=== PATIENT | male | born 1965 | race Caucasian/White ===

== ENCOUNTER → 2016-11-13 | Outpatient (CLI) | payer BC ==
[2016-11-13 08:55] LABS: CH 31.3; CHCM 32.2; HCT 46.5 % (39.0-53.0); HDW 2.31; MCH 31.5 pg (25.0-35.0); MCHC 32.2 g/dL (31.0-37.0); MCV 97.6 fL (80.0-100.0); Mean Platelet Volume 7.7; RBC 4.76 m/uL (4.30-5.90); RDW 12.9 % (11.5-15.5); WBC 7.6 k/uL (3.8-10.6)
[2016-11-13 09:00] LABS: Appearance,Urine Clear (Clear); Bilirubin,Urine Negative (Negative); Glucose,Urine (UA) Negative (Negative); Ketones,Urine Negative (Negative); Leukocyte Esterase,Urine Negative (Negative); Nitrite,Urine Negative (Negative); Protein,Urine Negative (Negative); Specific Gravity,Urine 1.015 (1.001-1.035); UA Billing (MACRO vs. MICRO) CHEM; Urobilinogen,Urine <2.0 mg/dL (<2.0)
[2016-11-13 11:26] LABS: ALT 64 U/L (21-72); AST 37 U/L (17-59); Alkaline Phosphatase 97 U/L (38-126); Anion Gap 10 mmol/L; Blood Urea Nitrogen 15 mg/dL (9-20); Calcium 9.2 mg/dL (8.4-10.2); Carbon Dioxide 25 mmol/L (22-30); Chloride 107 mmol/L (98-107); Cholesterol 144 mg/dL (<200); Glucose 104 mg/dL (74-99); HDL Cholesterol 56 mg/dL (40-60); Non-African American GFR(MDRD) >60 (>60 ml/min/1.73 sqM); Potassium 4.5 mmol/L (3.5-5.1); Sodium 142 mmol/L (137-145); Total Bilirubin 0.6 mg/dL (0.2-1.3); Total Protein 6.7 g/dL (6.3-8.2)
[2016-11-13 11:56] LABS: Prostate Specific Antigen 0.36 ng/mL (0.00-4.00)
== END | disposition home or self-care (01) ==
LOC: LABWHC1 08:20
PROVIDERS: ATTEND Family Medicine
DX: Z00.00 Encounter for general adult medical examination without abnormal findings (principal)
CPT/HCPCS: 36415; 80053; 80061; 81003; 84153; 85027

== ENCOUNTER 2020-06-13 07:21 | Day surgery (SDC) | payer BC ==
[2020-06-11 10:30] VITALS: BMI 28.2
[~2020-06-13 07:21] MED LIST: LACTATED RINGERS 1,000 ML IV SCH
[2020-06-13] MEDS ORDERED: LIDOCAINE 1% (10MG/ML) FOR IV START INTRADERMA ONE (07:54)
[2020-06-13 08:00] VITALS: TEMP 97.2
[2020-06-13] MEDS ORDERED: PROPOFOL 10 MG/ML 20 ML VIAL IV ONE (08:24)
--- NOTE | 2020-06-13 08:46 | P.PCN ---
Date of Procedure: 06/13/20 Procedure(s) Performed: BRIEF HISTORY: Patient is a 55-year-old pleasant white male scheduled for an elective colonoscopy as a part of screening for colorectal neoplasia. He has family history of colon cancer diagnosed in his paternal uncle and colon polyps in his father. PROCEDURE PERFORMED: Colonoscopy. PREOPERATIVE DIAGNOSIS: Screening for colon cancer and family history of colon cancer. IV sedation per Anesthesia. PROCEDURE: After informed consent was obtained, the patient, was brought into the endoscopy unit. IV sedation was administered by Anesthesia under continuous monitoring. Digital rectal examination was normal. Initially the Olympus CF-160 flexible video colonoscope was then inserted in the rectum, gradually advanced into the cecum without any difficulty. Careful examination was performed as the scope was gradually being withdrawn. Ileocecal valve and the appendiceal orifice were visualized and appeared normal. Prep was excellent. Mucosa of the cecum, ascending colon, transverse colon, descending colon, sigmoid colon, and rectum appeared normal. Retroflexion was performed in the rectum and no lesions were seen. The patient tolerated the procedure well. IMPRESSION: Normal-appearing colon from rectum to cecum with no evidence of colorectal neoplasia. RECOMMENDATIONS: Findings of this examination were discussed with the patient as well as his family. He was advised to have a repeat screening colonoscopy every 5 years because of the family history of colon cancer.
[2020-06-13 08:57] VITALS: BP 106/66; PULSE 57; RESP 18
== END 2020-06-13 09:19 | disposition home or self-care (01) ==
LOC: ORWHC2ENDO 07:21
PROVIDERS: ATTEND Internal Medicine Gastroenterology
DX: Z12.11 Encounter for screening for malignant neoplasm of colon (principal); Z80.0 Family history of malignant neoplasm of digestive organs; Z83.71 Family history of colonic polyps; K21.9 Gastro-esophageal reflux disease without esophagitis; Z98.890 Other specified postprocedural states
CPT/HCPCS: J2704; G0105; 45378

== ENCOUNTER → 2020-06-20 | Outpatient (CLI) | payer BC ==
--- NOTE | 2020-06-20 17:00 | CT ---
EXAMINATION TYPE: CT sinus wo con DATE OF EXAM: 06/20/2020 COMPARISON: None HISTORY: Chronic sinusitis. CT DLP: 624.5 mGycm Automated exposure control for dose reduction was used. Images obtained from the bottom of the maxilla to the top of the frontal sinuses without contrast. There is mucosal thickening in the frontal ethmoid and maxillary sinuses. Sphenoid sinus shows minima l mucosal thickening on the right side.. Nasal bone is intact. Orbital margins are intact. There is n o retro-orbital mass. There is bilateral patency of the ostiomeatal complex. The nasal turbinates marielena ear intact. I see no focal bone destruction. The maxilla is intact. There is normal aeration of the m astoid sinuses. IMPRESSION: There is pansinusitis. No focal bone destruction.
== END | disposition home or self-care (01) ==
LOC: RADCTMAIN 16:29
PROVIDERS: ATTEND Otolaryngology
DX: J32.4 Chronic pansinusitis (principal)
CPT/HCPCS: 70486

== ENCOUNTER 2022-08-01 18:08 | Emergency (ER) | payer BC ==
[2022-08-01 18:18] VITALS: TEMP 97.4
[2022-08-01] MEDS ORDERED: SODIUM CHLORIDE 0.9% 1,000 ML IV STA (18:36)
--- NOTE | 2022-08-01 19:06 | ED ---
General Adult HPI - General Chief complaint: Syncope Stated complaint: syncope Time Seen by Provider: 08/01/22 18:15 Source: EMS Mode of arrival: EMS Limitations: no limitations - History of Present Illness Initial comments: Patient's 57-year-old man who arrives here after he reportedly passed out. The patient states that he started feeling terrible around 5 PM. The was feeling weak and fatigued, lightheaded, and sweaty. At that time and he was a passenger in a vehicle. He subsequently had syncopal episode. Family reported that he had passed out probably for 30-60 seconds. There was some shaking activity but the patient did not have loss of continence. No reported postictal period. The patient denies having any sort of injury again he was seated when this occurred. Patient denies chest pain, dyspnea, vomiting, or other symptoms. Onset/Timin -: hour(s) Severity scale (1-10): 0 Consistency: constant Improves with: none Worsens with: none Associated Symptoms: diaphoresis, syncope - Related Data Home Medications Medication Instructions Recorded Confirmed Omeprazole [PriLOSEC] 40 mg PO BID 06/11/20 06/13/20 Allergies Allergy/AdvReac Type Severity Reaction Status Date / Time No Known Allergies Allergy Verified 08/01/22 18:18 Review of Systems ROS Statement: Those systems with pertinent positive or pertinent negative responses have been documented in the HPI. ROS Other: All systems not noted in ROS Statement are negative. Constitutional: Reports: weakness. Denies: fever, chills Eyes: Denies: vision change Respiratory: Denies: cough, dyspnea Cardiovascular: Reports: syncope. Denies: chest pain, palpitations, edema Gastrointestinal: Denies: abdominal pain, vomiting, diarrhea Genitourinary: Denies: dysuria Musculoskeletal: Denies: back pain Skin: Denies: rash Neurological: Denies: headache, weakness Past Medical History Past Medical History: GERD/Reflux History of Any Multi-Drug Resistant Organisms: None Reported Past Surgical History: Appendectomy, Hernia Repair Additional Past Surgical History / Comment(s): COLONOSCOPY, EGD Past Anesthesia/Blood Transfusion Reactions: Postoperative Nausea & Vomiting (PONV) Additional Past Anesthesia/Blood Transfusion Reaction / Comment(s): no hx blood transfusion, father had hx of blood transfusion without problems Past Psychological History: No Psychological Hx Reported Smoking Status: Former smoker - Past Family History Father Family Medical History: CVA/TIA Daughter(s) Family Medical History: Cancer, Deep Vein Thrombosis (DVT) Additional Family Medical History / Comment(s): melanoma Mother Family Medical History: No Reported History General Exam Limitations: no limitations General appearance: alert, in no apparent distress Head exam: Present: atraumatic, normocephalic Eye exam: Present: normal appearance. Absent: scleral icterus, conjunctival in jection ENT exam: Present: normal oropharynx Neck exam: Present: normal inspection, full ROM. Absent: tenderness Respiratory exam: Present: normal lung sounds bilaterally. Absent: respiratory distress, wheezes, rales, rhonchi, stridor Cardiovascular Exam: Present: regular rate, normal rhythm, normal heart sounds. Absent: systolic murmur, diastolic murmur, rubs, gallop GI/Abdominal exam: Present: soft. Absent: distended, tenderness, guarding, rebound, rigid, mass Extremities exam: Present: normal inspection, normal capillary refill. Absent: pedal edema, calf tenderness Back exam: Present: normal inspection. Absent: CVA tenderness (R), CVA tenderness (L) Neurological exam: Present: alert, oriented X3, CN II-XII intact. Absent: motor sensory deficit Skin exam: Present: warm, dry, intact, normal color. Absent: rash Course Vital Signs 08/01/22 08/01/22 08/01/22 18:10 19:36 21:48 Temperature 97.4 F L Pulse Rate 61 65 Respiratory 16 17 Rate Blood Pressure 90/66 106/70 112/80 O2 Sat by Pulse 92 L 98 Oximetry EKG Findings - EKG Results: EKG: interpreted by ERMFeliciano, sinus rhythm, normal axis, normal ST/T EKG shows: bradycardia (Rate 58 bpm) - Blocks, [place], Hypertrophy, ST Abn: AV and intraventricular conduction: right bundle branch block (fixed/intermitte nt, complete/incomplete) (Possible right ventricular conduction delay based on RSR prime pattern) Medical Decision Making - Medical Decision Making This patient is 57-year-old man with syncopal episode. His workup is negative here. He would like to go home. I did discuss appropriate further care and follow-up including seeing cardiology for possible Holter monitor/stress test. The patient had chest x-ray which was interpreted by myself as being negative for acute infiltrate, congestive heart failure, pneumothorax. Was pt. sent in by a medical professional or institution (, [facility], DECORATION [facility], urgent care, hospital, or [place] [facility] facility...) When possible be specific @ -[No] Did you speak to anyone other than the patient for history (EMS, parent, family, police, friend...)? What history was obtained from this source @ -[No] Did you review nursing and triage notes (agree or disagree)? Why? @ -[I reviewed and agree with nursing and triage notes] Were old charts reviewed (outside hosp., previous admission, EMS record, old EKG, old radiological studies, urgent care reports/EKG's, [place] health [facility] facility records)? Report findings @ -[No old charts were reviewed] Differential Diagnosis (chest pain, altered mental status, abdominal pain women, abdominal pain men, vaginal bleeding, weakness, fever, dyspnea, syncope, headache, dizziness, GI bleed, back pain, seizure, CVA, palpatations, mental health, musculoskeletal)? @ -[Differential Syncope: Valvular disease, hypertrophic cardiomyopathy, pulmonary embolism, tamponade, tachycardia, bradycardia, IA, hypovolemia, hemorrhage, dissection, anemia, intracranial hemorrhage, seizure, hypoglycemia, carbon monoxide poisoning, this is not meant to be an all-inclusive list. EKG interpreted by me (3pts min.). @ -[As above] X-rays interpreted by me (1pt min.). @ -[As above CT interpreted by me (1pt min.). @ -[None done] U/S interpreted by me (1pt. min.). @ -[None done] What testing was considered but not performed or refused? (CT, X-rays, U/S, labs)? Why? @ -[None] What meds were considered but not given or refused? Why? @ -[None] Did you discuss the management of the patient with other professionals (professionals i.e. , [facility], DECORATION CHECKER, lab, RT, psych nurse, social work administrator, industrial electrical technician, teacher, founder and chief technical officer, catalytic case operator)? Give summary @ -[No] Was smoking cessation discussed for >3mins.? @ -[No] Was critical care preformed (if so, how long)? @ -[No] Were there social determinants of health that impacted care today? How? (Homelessness, low income, unemployed, alcoholism, drug addiction, transportation, low edu. Level, literacy, decrease access to med. care, correction, rehab)? @ -[No] Was there de-escalation of care discussed even if they declined (Discuss DNR or withdrawal of care, Hospice)? DNR status @ -[No] What co-morbidities impacted this encounter? (DM, HTN, Smoking, COPD, CAD, Cancer, CVA, ARF, Chemo, Hep., AIDS, mental health diagnosis, sleep apnea, morbid obesity)? @ -[None] Was patient admitted / discharged? Hospital course, mention meds given and route, prescriptions, significant lab abnormalities, going to OR and other pertinent info. @ -[Discharged, with close follow-up Undiagnosed new problem with uncertain prognosis? @ -[No] Drug Therapy requiring intensive monitoring for toxicity (Heparin, Nitro, Insulin, Cardizem)? @ -[No] Were any procedures done? @ -[No] Diagnosis/symptom? @ -[acute syncopal episode Acute, or Chronic, or Acute on Chronic? @ -[default] Uncomplicated (without systemic symptoms) or Complicated (systemic symptoms)? @ -[Uncomplicated Side effects of treatment? @ -[No] Exacerbation, Progression, or Severe Exacerbation? @ -[No] Poses a threat to life or bodily function? How? (Chest pain, USA, IA, pneumonia, PE, COPD, DKA, ARF, appy, cholecystitis, CVA, Diverticulitis, Homicidal, Suicidal, threat to staff... and all critical care pts) @ -[No] - Lab Data Result diagrams: 08/01/22 19:01 08/01/22 19:01 Lab Results 08/01/22 08/01/22 08/01/22 Range/Units 19:01 19:01 19:01 WBC 7.6 (3.8-10.6) k/uL RBC 4.24 L (4.30-5.90) m/uL Hgb 13.4 (13.0-17.5) gm/dL Hct 40.5 (39.0-53.0) % MCV 95.4 (80.0-100.0) fL MCH 31.7 (25.0-35.0) pg MCHC 33.2 (31.0-37.0) g/dL RDW 12.9 (11.5-15.5) % Plt Count 195 (150-450) k/uL MPV 8.0 Neutrophils % 60 % Lymphocytes % 28 % Monocytes % 5 % Eosinophils % 5 % Basophils % 0 % Neutrophils # 4.6 (1.3-7.7) k/uL Lymphocytes # 2.1 (1.0-4.8) k/uL Monocytes # 0.4 (0-1.0) k/uL Eosinophils # 0.4 (0-0.7) k/uL Basophils # 0.0 (0-0.2) k/uL PT 9.9 (9.0-12.0) sec INR 0.9 (<1.2) APTT 18.1 L (22.0-30.0) sec D-Dimer 0.41 (<0.60) mg/L FEU Sodium 139 (137-145) mmol/L Potassium 3.7 (3.5-5.1) mmol/L Chloride 106 (98-107) mmol/L Carbon Dioxide 26 (22-30) mmol/L Anion Gap 7 mmol/L BUN 19 (9-20) mg/dL Creatinine 1.09 (0.66-1.25) mg/dL Est GFR (CKD-EPI)AfAm 87 (>60 ml/min/1.73 sqM) Est GFR (CKD-EPI)NonAf 75 (>60 ml/min/1.73 sqM) Glucose 107 H (74-99) mg/dL Calcium 8.6 (8.4-10.2) mg/dL Magnesium 1.7 (1.6-2.3) mg/dL Total Bilirubin 0.3 (0.2-1.3) mg/dL AST 42 (17-59) U/L ALT 48 (4-49) U/L Alkaline Phosphatase 51 (38-126) U/L Troponin I (0.000-0.034) ng/mL Total Protein 6.2 L (6.3-8.2) g/dL Albumin 3.7 (3.5-5.0) g/dL Serum Alcohol <10 mg/dL 08/01/22 Range/Units 19:01 WBC (3.8-10.6) k/uL RBC (4.30-5.90) m/uL Hgb (13.0-17.5) gm/dL Hct (39.0-53.0) % MCV (80.0-100.0) fL MCH (25.0-35.0) pg MCHC (31.0-37.0) g/dL RDW (11.5-15.5) % Plt Count (150-450) k/uL MPV Neutrophils % % Lymphocytes % % Monocytes % % Eosinophils % % Basophils % % Neutrophils # (1.3-7.7) k/uL Lymphocytes # (1.0-4.8) k/uL Monocytes # (0-1.0) k/uL Eosinophils # (0-0.7) k/uL Basophils # (0-0.2) k/uL PT (9.0-12.0) sec INR (<1.2) APTT (22.0-30.0) sec D-Dimer (<0.60) mg/L FEU Sodium (137-145) mmol/L Potassium (3.5-5.1) mmol/L Chloride (98-107) mmol/L Carbon Dioxide (22-30) mmol/L Anion Gap mmol/L BUN (9-20) mg/dL Creatinine (0.66-1.25) mg/dL Est GFR (CKD-EPI)AfAm (>60 ml/min/1.73 sqM) Est GFR (CKD-EPI)NonAf (>60 ml/min/1.73 sqM) Glucose (74-99) mg/dL Calcium (8.4-10.2) mg/dL Magnesium (1.6-2.3) mg/dL Total Bilirubin (0.2-1.3) mg/dL AST (17-59) U/L ALT (4-49) U/L Alkaline Phosphatase (38-126) U/L Troponin I <0.012 (0.000-0.034) ng/mL Total Protein (6.3-8.2) g/dL Albumin (3.5-5.0) g/dL Serum Alcohol mg/dL Disposition Clinical Impression: Syncope Disposition: HOME SELF-CARE Condition: Good Instructions (If sedation given, give patient instructions): Syncope (ED) Is patient prescribed a controlled substance at d/c from ED?: No Referrals: Saurabh Warner DO [Primary Care Provider] - 1-2 days
[2022-08-01 19:23] LABS: Basophils % (A) 0 %; Eosinophils # (A) 0.4 k/uL (0-0.7); Eosinophils % (A) 5 %; HCT 40.5 % (39.0-53.0); HGB 13.4 gm/dL (13.0-17.5); Lymphocytes # (A) 2.1 k/uL (1.0-4.8); Lymphocytes % (A) 28 %; MCH 31.7 pg (25.0-35.0); MCHC 33.2 g/dL (31.0-37.0); MCV 95.4 fL (80.0-100.0); Monocytes # (A) 0.4 k/uL (0-1.0); Monocytes % (A) 5 %; Neutrophils # (A) 4.6 k/uL (1.3-7.7); Neutrophils % (A) 60 %; Platelet Count 195 k/uL (150-450); RBC 4.24 m/uL (4.30-5.90); RDW 12.9 % (11.5-15.5); WBC 7.6 k/uL (3.8-10.6)
[2022-08-01 19:35] LABS: ALT 48 U/L (4-49); AST 42 U/L (17-59); African American GFR (CKD) 87 (>60 ml/min/1.73 sqM); Albumin 3.7 g/dL (3.5-5.0); Alcohol <10 mg/dL; Alkaline Phosphatase 51 U/L (38-126); Anion Gap 7 mmol/L; Blood Urea Nitrogen 19 mg/dL (9-20); Calcium 8.6 mg/dL (8.4-10.2); Carbon Dioxide 26 mmol/L (22-30); Chloride 106 mmol/L (98-107); Glucose 107 mg/dL (74-99); Magnesium 1.7 mg/dL (1.6-2.3); Non-African American GFR(CKD) 75 (>60 ml/min/1.73 sqM); Potassium 3.7 mmol/L (3.5-5.1); Sodium 139 mmol/L (137-145); Total Bilirubin 0.3 mg/dL (0.2-1.3); Total Protein 6.2 g/dL (6.3-8.2)
[2022-08-01 19:37] VITALS: PULSE 65; RESP 17
[2022-08-01 19:49] LABS: INR 0.9 (<1.2); Prothrombin Time 9.9 sec (9.0-12.0)
[2022-08-01 19:54] LABS: Partial Thromboplastin Time 18.1 sec (22.0-30.0)
--- NOTE | 2022-08-01 20:03 | XR ---
EXAMINATION TYPE: XR chest 2V DATE OF EXAM: 08/01/2022 7:54 PM COMPARISON: No relevant priors TECHNIQUE: XR chest 2V . CLINICAL INDICATION:Male, 57 years old with history of syncope; FINDINGS: Lungs/Pleura: There is no evidence of pleural effusion, focal consolidation, or pneumothorax. Pulmonary vascularity: Unremarkable. Heart/mediastinum: Cardiomediastinal silhouette is unremarkable. Atherosclerotic calcifications are seen in the aorta. Musculoskeletal: No acute osseous pathology. IMPRESSION: No acute cardiopulmonary disease/process.
[2022-08-01 21:48] VITALS: BP 112/80
== END 2022-08-01 21:48 | disposition home or self-care (01) ==
LOC: EC 18:08
DX: R55 Syncope and collapse (principal); K21.9 Gastro-esophageal reflux disease without esophagitis; Z87.891 Personal history of nicotine dependence; Z79.899 Other long term (current) drug therapy
CPT/HCPCS: 36415; 71046; 80053; 80320; 83735; 84484; 85025; 85379; 85610; 85730; 93005; 96360; 99284

== ENCOUNTER 2023-03-03 09:10 | Day surgery (SDC) | payer BC ==
[~2023-03-03 09:10] MED LIST changes: +DEXAMETHASONE SOD PHOSPHATE 4 MG/ML 1 ML VIAL IV ONE; +FAMOTIDINE 20 MG/2 ML VIAL IV PRN; +HYDROmorphone 0.5 MG/0.5 ML SYRINGE IVP PRN; +LIDOCAINE 1% (10MG/ML) FOR IV START INTRADERMA PRN; +ONDANSETRON 4 MG/2 ML VIAL IVP ONE; +ONDANSETRON 4 MG/2 ML VIAL IVP PRN; +SCOPOLAMINE 1 MG/72 HR PATCH TRANSDERM ONE
[2023-03-03] MEDS: OXYMETAZOLINE 0.05% NASL SPRAY 1 SPRAY BOTTLE EA NOSTRIL PRN ×5 (09:40→10:00)
[2023-03-03 09:46] LABS: Glucose,Whole Blood 108 mg/dL (70-110)
[2023-03-03] MEDS ORDERED: MIDAZOLAM 2 MG/2 ML VIAL IVP ONE (10:12)
[2023-03-03] MEDS ORDERED: PROPOFOL 10 MG/ML 20 ML VIAL IV ONE (10:29)
[2023-03-03] MEDS ORDERED: fentaNYL (PF) 50 MCG/ML 2 ML AMP ONE (10:29)
[2023-03-03] MEDS ORDERED: PHENYLEPHRINE-0.9% NACL SYG 1,000 MCG/10 ML SYRINGE ONE (10:29)
[2023-03-03] MEDS ORDERED: SUCCINYLCHOLINE CHLORIDE 200 MG/10 ML VIAL IV ONE (10:29)
[2023-03-03] MEDS ORDERED: GLYCOPYRROLATE 0.2 MG/ML 2 ML VIAL ONE (10:29)
[2023-03-03] MEDS ORDERED: MIDAZOLAM 2 MG/2 ML VIAL ONE (10:29)
[2023-03-03] MEDS ORDERED: BUPIVACAINE (PF) 0.5% 30 ML VIAL MISCELLANE ONE (10:41)
[2023-03-03] MEDS ORDERED: LIDOCAINE 1%-EPI 1:100,000 50 ML VIAL SUBMUCOSAL ONE (10:41)
[2023-03-03] MEDS ORDERED: FLUORESCEIN STRIPS 1 MG STRIP MISCELLANE ONE (10:52)
[2023-03-03] MEDS ORDERED: EPINEPHrine 1 MG/ML (MDV) 30 ML VIAL TOPICAL ONE (10:53)
[2023-03-03] MEDS ORDERED: BACITRACIN ZINC 500 UNIT/GM OINT 28.4 GM TUBE TOPICAL ONE (10:53)
--- NOTE | 2023-03-03 12:03 | P.OP ---
Date of Procedure: 03/03/23 Preoperative Diagnosis: Chronic pansinusitis with sinonasal polyposis Deviated nasal septum Inferior turbinate hypertrophy Postoperative Diagnosis: Same Procedure(s) Performed: Septoplasty Bilateral submucosal resection of the inferior nasal turbinates with outfracturing compression Bilateral functional endoscopic sinus surgery of all sinuses with sinonasal polypectomy Anesthesia: BIJAL Surgeon: Rodney Tony Estimated Blood Loss (ml): 15 Pathology: other (Sinonasal) Condition: stable Disposition: PACU Indications for Procedure: This patient presented to the office with multiple sinonasal symptoms of drainage nasal congestion etc. CAT scan confirms chronic pansinusitis with sinonasal polyposis vision also has a severe left septal deviation and large obstructive inferior turbinates. Was placed on antibiotics and Flonase nasal spray irrigations all without any improvement and has failed appropriate maximal medical therapy. After long discussion we decided to proceed forward with sinus surgery septoplasty and turbinate surgery with polypectomy. All risks, benefits and alternative therapies were discussed in detail. Consent was obtained and all questions were answered. Operative Findings: Patient has a severe left septal deviation large obstructive inferior turbinates in addition the patient had polyps and blockage sinuses all sinuses were blocked polyps were obstructive bilaterally. Purulent material was seen throughout. Description of Procedure: This patient was taken to the operative room and placed in the supine position. A general inhalation anesthetic was administered to the patient by the department of anesthesia with a functioning IV line in place. The patient was monitored throughout the entire case by the department of anesthesia. The eyes were taped shut for protection. The patient was placed in a slight reverse Trendelenburg position. The patient had previously utilize Afrin nasal spray preoperatively. The nose was evaluated and the septum lateral nasal wall and inferior turbinates were injected with lidocaine 1% with epinephrine 1 100,000 bilaterally. Approximately 10 minutes were allowed wait for full vasoconstrictive effects to take place. At this point a caudal incision was made over the caudal portion of the left septum down to the mucoperichondrium. A mucoperichondrial flap was elevated on the left side and dissection was carried with use of tunnels posteriorly. We then made a crossover incision through the cartilage to the contralateral side and for the mucoperichondrial flap development was performed to the extent of visualization on the contralateral side. After the cartilage was freed with use of several crosshatching incisions and removal of some redundant strips of septal cartilage, the septum was straightened and placed back in the midline. The septum was sutured fixated to the ovarian groove. Excellent straightening occurred and the septum was visibly straight. Incision was closed with a 40 rapid Vicryl. We utilized a running nonlocking fashion for closure of the incision. A quilting stitch was used to reapproximate the septal flaps with use of a 40 rapid Vicryl. We then entered the nose with a 0 and 30 Hernandez hema endoscope. Previous to this we did inject the lateral nasal wall and middle turbinate and uncinate process with lidocaine 1% with epinephrine 1 100,000. Approximately 10 minutes were allowed wait for full vasoconstrictive effects to take place. Intranasal polyps were noted. They were noted bilaterally. The intranasal polyps were removed with use of a microdebrider. With use of a microdebrider and a pediatric backbiter, we took down the uncinate process bilaterally. We then opened the maxillary sinuses bilaterally. We utilized a microdebrider for this and entered the maxillary sinuses and removed diseased tissue and polypoid tissue. This was done bilaterally. After the maxillary sinuses were opened and the diseased tissue and polyps were removed we entered the ethmoid bulla and wit h use of a microdebrider and up-biting carlos and Slick, we removed the anterior septations and remove diseased tissue from the anterior ethmoids with direct visualization. We then followed the fovea frontalis through the basal lamella and into the posterior ethmoid air cells and did a total ethmoidectomy with removal of polypoid material. Once all the ethmoid air cells were all taken down we then entered the sphenoid sinus medially and inferiorly underneath the inferior attachment of the superior turbinate. The sphenoid sinuses was opened entered and diseased tissue and polyps were removed bilaterally. This was done with a microdebrider and [place]. We then entered the frontal sinuses with a giraffe and up-biting Malreneley entered and removed the agar nasi cells. We open the frontal sinuses and removed the diseased sinus tissue and polypoid tissue.. We explored the frontal sinuses bilaterally. To summarize all sinuses were open all sinuses were explored and we remove diseased tissue and polyps from the sphenoid maxillary ethmoid, and frontal sinuses. Polyps were removed from the nose. Ethmoid sinuses were opened totally. Nasal pore xerogel was inserted and minimal bleeding was encountered. We reinspected the skull base there is no signs of any orbital penetration or signs of any intracranial penetration. The sugical site was reinspected after the nasal pore and xerogel was placed and no bleeding was seen. Attention was then paid to the inferior turbinates. The bilateral inferior turbinates were hypertrophic and obstructive. We entered the anterior portion of the inferior turbinates with use of a microdebrider. We remove bone and submucosal elements with use of a microdebrider bilaterally. The inferior turbinates underwent a submucosal resection with removal of submucosal tissue and bone. We obtained a much better and normal in size for breathing. The inferior turbinates were then outfractured and compressed with a [employer] nasal elevator. Excellent airway was obtained and was symmetric bilaterally. No bleeding was encountered. Intranasal splints were inserted and fixated at the end of the case. We utilized Boles nasal splints. There will be removed and the patient returns to the office.
[2023-03-03 12:14] VITALS: TEMP 97
[2023-03-03] MEDS ORDERED: oxyCODONE-APAP 5-325MG 1 EACH TAB ONE (13:11)
[2023-03-03] MEDS ORDERED: LACTATED RINGERS 1,000 ML IV ONE (13:20)
[2023-03-03 13:52] VITALS: PULSE 55; RESP 18
[2023-03-03 14:16] VITALS: BP 125/72
== END 2023-03-03 14:27 | disposition home or self-care (01) ==
LOC: OR 09:10
PROVIDERS: ATTEND Otolaryngology
DX: J33.9 Nasal polyp, unspecified (principal); J32.4 Chronic pansinusitis; J34.2 Deviated nasal septum; J34.3 Hypertrophy of nasal turbinates; E78.5 Hyperlipidemia, unspecified; Z79.2 Long term (current) use of antibiotics; Z79.1 Long term (current) use of non-steroidal anti-inflammatories (NSAID); Z79.899 Other long term (current) drug therapy; Z98.890 Other specified postprocedural states
CPT/HCPCS: 30520; 30140; 31257; 31267; 31253; 88305; 88300; C1726; J0171; J2250; J0330; J1100; J0690; J2405; J3010; J3490; J2704; J1170; J2371; J0665